=== PATIENT | female | born 1985 | race Caucasian/White ===

== ENCOUNTER 2019-03-09 12:32 | Outpatient (CLI) | payer MEDICAID ==
[~2019-03-09 12:32] MED LIST: barium sulfate 450ml oral suspension ONE
== END 2019-03-09 23:59 | disposition home or self-care (01) ==
LOC: RAD 12:32
PROVIDERS: ATTEND Family Medicine
DX: R13.12 Dysphagia, oropharyngeal phase (principal); Z79.899 Other long term (current) drug therapy; Z93.1 Gastrostomy status
CPT/HCPCS: 74230

== ENCOUNTER 2021-07-24 10:53 | Outpatient (CLI) | payer MEDICAID | END 2021-07-24 23:59 | disposition home or self-care (01) | LOC: RAD 10:53 | PROVIDERS: ATTEND Internal Medicine Gastroenterology | DX: K59.09 Other constipation (principal) | CPT/HCPCS: 74019 ==

== ENCOUNTER 2021-08-16 05:21 | Emergency (ER) | payer MEDICAID ==
[~2021-08-16] VITALS: Ht 144.8 cm; Wt 51.8 kg
[2021-08-16 05:56] LABS: BASOPHILS % (AUTO) 0.1 % (0-1); EOSINOPHILS # (AUTO) 0.1 X10'3 (0-0.9); EOSINOPHILS % (AUTO) 0.8 % (0-6); HEMATOCRIT 33.7 % (35.0-45.0); HEMOGLOBIN 11.8 g/dl (12.0-16.0); LYMPHOCYTES # (AUTO) 0.6 X10'3 (1.1-4.8); LYMPHOCYTES % (AUTO) 5.7 % (21-51); MEAN CORPUSCULAR HEMOGLOBIN 33.3 PG (27.0-31.0); MEAN CORPUSCULAR HGB CONC 34.9 g/dL (33.0-36.5); MEAN CORPUSCULAR VOLUME 95.5 FL (78-98); MEAN PLATELET VOLUME 8.5 FL (7.4-10.4); MONOCYTES # (AUTO) 0.5 X10'3 (0-0.9); MONOCYTES % (AUTO) 4.5 % (2-12); NEUTROPHILS % (AUTO) 88.9 % (42-75); PLATELET COUNT 205 X10'3 (140-440); RED BLOOD COUNT 3.53 X10'6 (4.20-5.60); RED CELL DISTRIBUTION WIDTH 12.3 % (11.5-14.5); WHITE BLOOD COUNT 10.2 X10'3 (4.5-11.0)
[2021-08-16 06:24] LABS: ALBUMIN/GLOBULIN RATIO 0.8 (1.1-1.5); ALKALINE PHOSPHATASE 54 IU/L (46-116); ANION GAP 10 (8-16); ASPARTATE AMINO TRANSFERASE 21 U/L (10-37); BILIRUBIN,TOTAL 0.3 MG/DL (0.1-1.0); BLOOD UREA NITROGEN 15 MG/DL (7-18); CALCIUM 8.6 MG/DL (8.5-10.1); CHLORIDE 101 MMOL/L (99-107); GLUCOSE 99 MG/DL (70-104); LIPASE 107 U/L (73-393); POTASSIUM 4.2 MMOL/L (3.5-5.1); SODIUM 134 MMOL/L (135-145); TOTAL CARBON DIOXIDE 22.9 MMOL/L (24-32); eGFR > 90 ML/MIN
[2021-08-16 06:25] LABS: ALANINE AMINOTRANSFERASE < 6 U/L (12-78)
[2021-08-16] MEDS ORDERED: normal saline 1000ML IV soln IVB ONE ×2 (06:30)
[2021-08-16] MEDS ORDERED: ondansetron/PF 4mg/2ml inj IV ONE (07:50)
[2021-08-16 08:18] LABS: URINE HCG NEGATIVE (NEG)
[2021-08-16 08:21] LABS: CLARITY,URINE CLEAR (Clear); GLUCOSE, URINE NEGATIVE (Neg); KETONES,URINE NEGATIVE (Neg); LEUKOCYTE ESTERASE ,URINE NEGATIVE (Neg); NITRITES, URINE NEGATIVE (Neg); OCCULT BLOOD,URINE NEGATIVE (Neg); PROTEIN,URINE NEGATIVE (Neg); UROBILINOGEN,URINE 0.2 E.U/dL (0.2-1.0)
[2021-08-16 08:24] LABS: COLOR,URINE STRAW (Yellow); UA COLLECTION TYPE STRAIGHT CATH
[2021-08-16 09:21] VITALS: BP 100/50
== END 2021-08-16 09:24 | disposition home or self-care (01) ==
LOC: ER 05:22
DX: R05.9 Cough, unspecified (principal); R11.10 Vomiting, unspecified; R06.02 Shortness of breath; Z86.69 Personal history of other diseases of the nervous system and sense organs; Z98.890 Other specified postprocedural states; Z88.1 Allergy status to other antibiotic agents; Z88.8 Allergy status to other drugs, medicaments and biological substances; Z91.040 Latex allergy status
CPT/HCPCS: 36415; 71045; 80053; 81003; 81025; 83605; 83690; 85025; 87040; 96361; 96374; 99284; J2405; J7030

== ENCOUNTER 2022-01-29 15:24 | Emergency (ER) | payer MEDICAID ==
[~2022-01-29] VITALS: Ht 157.5 cm; Wt 55.5 kg
[2022-01-29] MEDS ORDERED: BEBTELOVIMAB 175 MG/2 ML VIAL IV ONE (16:05)
[2022-01-29] MEDS ORDERED: dexamethasone sod phosphate 10mg/ml inj IV STA (16:48)
[2022-01-29] MEDS ORDERED: azithromycin/NS 500mg/250ml 250 ML IV ONE (16:55)
[2022-01-29] MEDS ORDERED: AZIT500T PO (17:07)
[2022-01-29] MEDS ORDERED: ALBU6.7H9 INH (17:07)
[2022-01-29] MEDS ORDERED: DEXA4TAB67 PO (17:07)
[2022-01-29 19:30] VITALS: BP 124/73
== END 2022-01-29 19:38 | disposition home or self-care (01) ==
LOC: ER 15:25
DX: U07.1 COVID-19 (principal); J18.9 Pneumonia, unspecified organism; Z88.1 Allergy status to other antibiotic agents; Z98.890 Other specified postprocedural states; Z88.8 Allergy status to other drugs, medicaments and biological substances; Z91.040 Latex allergy status; Z79.899 Other long term (current) drug therapy
CPT/HCPCS: 71045; 96365; 96375; 99284; J0456; J1100; M0222; Q0222

== ENCOUNTER 2023-11-25 20:08 | Emergency (ER) | payer MEDICAID ==
[~2023-11-25] VITALS: Ht 157.5 cm; Wt 54.5 kg
[~2023-11-25 20:08] MED LIST changes: +ALBU6.7H14 INH; +DEXA4TAB67 PO; -barium sulfate 450ml oral suspension ONE
[2023-11-26 02:59] LABS: ANION GAP 4 (8-16); BASOPHILS # (AUTO) 0.1 X10'3 (0-0.2); BLOOD UREA NITROGEN 6 MG/DL (7-18); BUN/CREATININE RATIO 12.5 (10.0-20.0); CHLORIDE 103 MMOL/L (99-107); CREATININE 0.48 MG/DL (0.40-0.90); EOSINOPHILS # (AUTO) 0.1 X10'3 (0-0.9); EOSINOPHILS % (AUTO) 1.8 % (0-6); GLUCOSE 83 MG/DL (70-104); HEMATOCRIT 39.3 % (35.0-45.0); LYMPHOCYTES # (AUTO) 2.1 X10'3 (1.1-4.8); MAGNESIUM 1.9 MG/DL (1.5-2.4); MEAN CORPUSCULAR HEMOGLOBIN 31.5 PG (27.0-31.0); MEAN CORPUSCULAR VOLUME 95.3 FL (78-98); MONOCYTES # (AUTO) 0.6 X10'3 (0-0.9); MONOCYTES % (AUTO) 8.2 % (2-12); PLATELET COUNT 256 X10'3 (140-440); POTASSIUM 3.7 MMOL/L (3.5-5.1); RED BLOOD COUNT 4.12 X10'6 (4.20-5.60); RED CELL DISTRIBUTION WIDTH 12.6 % (11.5-14.5); SODIUM 138 MMOL/L (135-145); TOTAL CARBON DIOXIDE 30.7 MMOL/L (24-32); WHITE BLOOD COUNT 6.9 X10'3 (4.5-11.0); eCRCL 128 ML/MIN; eGFR > 90 ML/MIN
[2023-11-26] MEDS ORDERED: ketorolac trometh. 30mg/ml inj. IV ONE (03:15)
[2023-11-26] MEDS: normal saline 1000ml 1,000 ML IV ONE (03:18)
[2023-11-26] MEDS: ondansetron/PF 4mg/2ml inj IV ONE (03:22)
[2023-11-26] MEDS: ketorolac tromethamine 15mg/ml inj. IV ONE (03:29)
[2023-11-26] MEDS: CefTRIAXone/D5W-Rocephin 1gm 50 ML IV ONE (03:48)
[2023-11-26 03:50] LABS: BILIRUBIN,URINE SMALL (Neg); CLARITY,URINE TURBID (Clear); COLOR,URINE YELLOW (Yellow); GLUCOSE, URINE NEGATIVE (Neg); KETONES,URINE NEGATIVE (Neg); LEUKOCYTE ESTERASE ,URINE LARGE (Neg); NITRITES, URINE NEGATIVE (Neg); OCCULT BLOOD,URINE TRACE-INTACT (Neg); PROTEIN,URINE 100 mg/dl (Neg)
[2023-11-26 03:51] LABS: UA COLLECTION TYPE STRAIGHT CATH; URINE HCG NEGATIVE (NEG)
[2023-11-26 03:56] LABS: WBC,URINE TNTC /HPF (0-4)
[2023-11-26 03:58] LABS: MUCUS STRANDS MANY /LPF (Neg); RBC,URINE 50-100 /HPF (0-2); SQUAMOUS EPITHELIAL CELL,UR MANY /LPF (FEW); TRANSITIONAL EPI CELLS,URINE MODERATE /HPF
[2023-11-26 03:59] LABS: BACTERIA,URINE 4+ /HPF (Neg)
[2023-11-26 04:00] LABS: WBC CLUMPS,URINE MODERATE /HPF (NEGATIVE)
[2023-11-26] MEDS ORDERED: LEVO-65 PO (04:19)
[2023-11-26] MEDS ORDERED: ONDA4TAB12 PO (04:19)
[2023-11-26 05:16] VITALS: BP 105/75; PULSE 72; RESP 16; TEMP 98; O2SAT 95
== END 2023-11-26 05:00 | disposition home or self-care (01) ==
LOC: ER 20:08
DX: N39.0 Urinary tract infection, site not specified (principal); H66.91 Otitis media, unspecified, right ear; Z88.1 Allergy status to other antibiotic agents; Z88.6 Allergy status to analgesic agent; Z91.040 Latex allergy status; Z79.899 Other long term (current) drug therapy
CPT/HCPCS: 36415; 71045; 80048; 81001; 81025; 83605; 83735; 84145; 85025; 87040; 87077; 87088; 87186; 93005; 96374; 96375; 99285; J0696; J1885; J2405; J7030; A4353